=== PATIENT | female | born 1960 | race Caucasian/White ===

== ENCOUNTER 2023-03-10 08:56 | Outpatient (CLI) | payer MEDICARE, MEDICAID | END 2023-03-10 08:57 | disposition home or self-care (01) | LOC: DTY/OP 08:56 | PROVIDERS: ATTEND Student in an Organized Health Care Education/Training Program | DX: E11.65 Type 2 diabetes mellitus with hyperglycemia (principal) | CPT/HCPCS: 97802 ==

== ENCOUNTER 2024-02-24 12:55 | Outpatient (CLI) | payer MEDICARE, MEDICAID | END 2024-02-24 12:56 | disposition home or self-care (01) | LOC: SCSRAD 12:55 | PROVIDERS: ATTEND Family Medicine | DX: L89.899 Pressure ulcer of other site, unspecified stage (principal) ==